=== PATIENT | female | born 1990 | race African-American/Black ===

== ENCOUNTER 2017-04-10 13:23 | Emergency (ER) | payer MEDICAID ==
[~2017-04-10] VITALS: Ht 157.5 cm; Wt 91.1 kg
[~2017-04-10 13:23] MED LIST: FERR-63 PO; PREN-88 PO
[2017-04-10 13:48] VITALS: BP 131/86
== END 2017-04-10 18:29 | disposition left against medical advice (07) ==
LOC: ER 13:24
DX: N89.8 Other specified noninflammatory disorders of vagina (principal); Z53.21 Procedure and treatment not carried out due to patient leaving prior to being seen by health care provider

== ENCOUNTER 2018-03-07 21:03 | Emergency (ER) | payer MEDICAID ==
[~2018-03-07] VITALS: Ht 157.5 cm; Wt 99.0 kg
[2018-03-07 22:08] LABS: CLARITY URINE CLEAR (CLEAR); COLOR URINE YELLOW (YELLOW); KETONES URINE NEGATIVE (NEGATIVE); LEUKOCYTE ESTERASE URINE NEGATIVE (NEGATIVE); NITRITE URINE NEGATIVE (NEGATIVE); OCCULT BLOOD URINE NEGATIVE (NEGATIVE); PH URINE 7.5 (4.5-8.0); PROTEIN URINE NEGATIVE (NEGATIVE); SPECIFIC GRAVITY URINE 1.021 (1.005-1.030); UROBILINOGEN URINE 0.2 E.U./dL (0.2-1.0)
[2018-03-08] MEDS ORDERED: AZITHROMYCIN 500 MG TABLET PO ONE (00:45)
[2018-03-08] MEDS ORDERED: LIDOCAINE HCL 1% 20ML VIAL (Pyxis) INJ MC ONE (00:45)
[2018-03-08] MEDS ORDERED: CEFTRIAXONE SODIUM 250 MG/VIAL IM ONE (00:45)
[2018-03-08] MEDS ORDERED: LIDOCAINE HCL/PF 1% 10 MG/ML 30ML VIAL INFIL SCH (00:47)
[2018-03-08 01:15] VITALS: BP 129/74
== END 2018-03-08 02:03 | disposition home or self-care (01) ==
LOC: ER 21:03
DX: N76.0 Acute vaginitis (principal); B96.89 Other specified bacterial agents as the cause of diseases classified elsewhere
CPT/HCPCS: 81003; 81025; 87210; 87491; 87591; 96372; 99284; J0696; J3490

== ENCOUNTER 2018-04-10 10:12 | Emergency (ER) | payer MEDICAID ==
[~2018-04-10] VITALS: Ht 157.5 cm; Wt 91.0 kg
[2018-04-10 11:30] LABS: CLARITY URINE CLEAR (CLEAR); COLOR URINE AMBER (YELLOW); KETONES URINE NEGATIVE (NEGATIVE); LEUKOCYTE ESTERASE URINE 1+ (NEGATIVE); NITRITE URINE NEGATIVE (NEGATIVE); OCCULT BLOOD URINE NEGATIVE (NEGATIVE); PROTEIN URINE NEGATIVE (NEGATIVE); SPECIFIC GRAVITY URINE 1.026 (1.005-1.030); UROBILINOGEN URINE 0.2 E.U./dL (0.2-1.0)
[2018-04-10 11:51] VITALS: BP 118/72
== END 2018-04-10 12:08 | disposition home or self-care (01) ==
LOC: ER 10:12
DX: B37.3 Candidiasis of vulva and vagina (principal)
CPT/HCPCS: 81003; 81025; 99283

== ENCOUNTER 2021-11-23 13:20 | Observation (INO) | payer MEDICAID ==
[~2021-11-23] VITALS: Ht 165.1 cm; Wt 116.1 kg
== END 2021-11-23 15:30 | disposition home or self-care (01) ==
LOC: 8 EST LDRP 13:20 → 8 EST A/PP 13:41
PROVIDERS: ADMIT Obstetrics & Gynecology; ATTEND Obstetrics & Gynecology
DX: O26.893 Other specified pregnancy related conditions, third trimester (principal); R10.9 Unspecified abdominal pain; O99.891 Other specified diseases and conditions complicating pregnancy; M54.9 Dorsalgia, unspecified; O62.9 Abnormality of forces of labor, unspecified; Z3A.30 30 weeks gestation of pregnancy
CPT/HCPCS: 59025; 76805; 76818; G0378; 99281